=== PATIENT | male | born 1975 | race Caucasian/White ===

== ENCOUNTER 2017-08-01 10:15 | Emergency (ER) | payer OTHER ==
[~2017-08-01] VITALS: Ht 182.9 cm; Wt 75.7 kg
[2017-08-01 10:39] VITALS: BP 132/85
[2017-08-01] MEDS ORDERED: HYDROcodone-ACET 10/325MG TAB PO ONE (12:15)
== END 2017-08-01 12:30 | disposition home or self-care (01) ==
LOC: ER 10:15
DX: M54.16 Radiculopathy, lumbar region (principal)
CPT/HCPCS: 72100